=== PATIENT | female | born 1950 | race Caucasian/White ===

== ENCOUNTER 2016-02-20 15:57 | Inpatient (IN) | payer BC ==
[~2016-02-20] VITALS: Ht 175.3 cm; Wt 74.5 kg
[2016-02-21] MEDS ORDERED: LETR2.5T PO (09:51)
[2016-02-21] MEDS ORDERED: ZOLP10TA3 PO (09:51)
[2016-02-21] MEDS ORDERED: DENO60P SQ (09:51)
[2016-02-21] MEDS ORDERED: OMEP20TA PO (09:51)
[2016-02-21] MEDS ORDERED: DULO1CAP3 PO (09:51)
[2016-02-21] MEDS ORDERED: CALC1TAB12 PO (09:51)
[2016-02-21] MEDS ORDERED: HYDR200T3 PO (09:51)
[2016-02-21] MEDS ORDERED: ASPI1TAB69 PO (09:51)
[2016-02-21] MEDS ORDERED: METO25TA3 PO (10:50)
[2016-02-21] MEDS ORDERED: PRAV10TA PO (10:50)
[2016-02-25] VITALS (11 sets, daily range): BP systolic 91–110; BP diastolic 53–63; PULSE 53–80; RESP 16–20; TEMP 97.6–98; O2SAT 94–100
[2016-02-25] MEDS ORDERED: SODIUM CHLORID 0.9% 500 ML IV SCH (07:00)
[2016-02-25] MEDS ORDERED: INSULIN HUMAN REGULAR 1,000 UNITS/10 ML VIAL SQ PRN (07:00)
[2016-02-25] MEDS ORDERED: METOPROLOL TARTRATE 25 MG TAB PO PRN (07:00)
[2016-02-25] MEDS: LACTATED RINGER'S 1000 ML IV SCH (07:15)
[2016-02-25] MEDS ORDERED: LIDOCAINE 1%/EPINEPHrine 1:100,000 SOLN 20 ML VIAL ONE (08:19)
--- NOTE | 2016-02-25 08:28 | EKG ---
Date Performed: 02/25/2016 Time Performed: 07:57:08 PTAGE: 65 years EKG: SINUS BRADYCARDIA POSSIBLE RIGHT VENTRICULAR CONDUCTION DELAY BORDERLINE ECG PREVIOUS TRACING : 05/20/2004 09.19 No significant change from previous tracing noted. DOCTOR: Evgeny Mckinnon Interpretating Date/Time 02/25/2016 08:27:41
[2016-02-25] MEDS ORDERED: SODIUM BICARBONATE 8.4% INJ 50 ML ONE (08:44)
[2016-02-25] MEDS ORDERED: MIDAZOLAM HCL 5 MG/5 ML VIAL ONE (08:50)
[2016-02-25] MEDS ORDERED: fentaNYL CITRATE 250 MCG/5 ML AMP ONE ×2 (08:51→12:34)
--- NOTE | 2016-02-25 10:25 | PD.RAD ---
Post CT Procedure Prog Note Pre Procedure Diagnosis: (1) Breast CA Post Procedure Diagnosis: (1) Breast CA Procedure Date: Feb 25, 2016 Supervising Radiologist: Juan Quintanilla Proceduralist/Assist: RT Mauricio(R)(CT) Anesthesia: Local, Conscious Sedation Plan of Activity Patient to Unit: ROPU Patient Condition: Good See PACS Report for procedural detail/treatment Biopsy Side: Left Biopsy Procedure: Bone Site: T 11 rib marking Additional Detail: breast marking needles placed with tips along the top edge of the left 11h rib at the medial and lateral margin of the imaging abnormality in question Juan Quintanilla MD Feb 25, 2016 10:25
--- NOTE | 2016-02-25 10:41 | RADRPT ---
EXAM DATE/TIME: 02/25/2016 08:28 [facility] COMPARISON: No previous studies available for comparison. INDICATIONS : Needle placement left 11th rib. SEDATION TIME: 30 minutes MEDICATION(S): 1.) 4 mg midazolam (Versed) IV 2.) 200 mcg fentanyl (Sublimaze) IV DEVICE(S): 1.) 20 gauge Lee blunt needle MEDICAL HISTORY : Carcinoma, breast. SURGICAL HISTORY : None. ENCOUNTER: Initial ACUITY: 1 day PAIN SCORE: 0/10 LOCATION: Left chest PROCEDURE: 1.) Conscious sedation with continuous EKG and oximetry monitoring. 2.) EKG and oximetry remained stable throughout the procedure. PROCEDURE : CT guided left 11th rib marking. The risks, benefits and alternatives to the procedure were explained and verbal and written consent w as obtained. The site was prepped in sterile fashion. Full sterile technique was used, including ca p, mask, sterile gloves and gown and a large sterile sheet. Hand hygiene and 2% chlorhexidine and/or betadine/alcohol prep was utilized per protocol for cutaneous antisepsis. The skin and subcutaneous tissues were infiltrated with local anesthetic solution. Under direct CT guidance, 5 cm Lee breast localization needles were introduced and placed along t he superior edge of the medial and the lateral most margin of the abnormal section of the left 11th r ib. The needles were secured and bulky dressing was applied to help minimize risk of dislodgment prio r to surgery scheduled for later this morning. The patient tolerated the procedure well. Continuous p ulse oximetry and hemodynamic monitoring was performed throughout the procedure and intravenous consc ious sedation was administered as outlined above. CONCLUSION: Uncomplicated marking of the left 11th rib for open surgical biopsy as described in detail above. Juan Quintanilla MD on February 25, 2016 at 10:33 Board Certified Radiologist. This report was verified electronically.
[2016-02-25] MEDS ORDERED: BUPIVACAINE LIPOSO PF 1.3% INJ 20 ML, DEXAMETHASONE INJ 4 MG in SODIUM CHLORIDE 0.9% IN... PERIART SCH (12:00)
[2016-02-25] MEDS ORDERED: PHENYLEPH/NS 1000 MCG/10 ML SYR IV ONE (12:29)
[2016-02-25] MEDS ORDERED: PROPOFOL 200 MG/20 ML AMP IV ONE (12:29)
[2016-02-25] MEDS ORDERED: DO NOT ADM ANY ANTICOAGULANT DRUGS XX PRN (13:22)
[2016-02-25] MEDS ORDERED: SODIUM CHLORIDE 0.9% FLUSH 5 ML FLUSH IV FLUSH PRN (13:30)
[2016-02-25] MEDS ORDERED: *HYDROmorphone PF 1 MG VIAL PERIprocedural Use ONLY ONE ×2 (13:39→14:02)
--- NOTE | 2016-02-25 14:26 | RADRPT ---
EXAM DATE/TIME: 02/25/2016 13:05 [facility] COMPARISON: CT GUIDED NEEDLE PLACEMENT, February 25, 2016, 8:28. INDICATIONS : Left rib removal. MEDICAL HISTORY : Carcinoma, breast. SURGICAL HISTORY : Left rib removal. ENCOUNTER: Subsequent ACUITY: 1 day PAIN SCORE: Non-responsive. LOCATION: Left chest FINDINGS: Limited AP view of the chest demonstrates a left-sided chest tube projecting over the mediastinum. No visible pneumothorax within the imaged left lung. CONCLUSION: Left-sided line projecting over the mediastinum. No visualized pneumothorax or pleura l effusion. Parisa Hamilton MD on February 25, 2016 at 14:04 Board Certified Radiologist. This report was verified electronically.
[2016-02-25] MEDS: oxyCODONE/ACETAMINOPHEN 5 MG/325 MG TAB PO PRN ×2 (16:05→20:53)
[2016-02-25] MEDS: ONDANSETRON HCL 4 MG/2 ML VIAL IV PUSH PRN (18:33)
[2016-02-26] VITALS (26 sets, daily range): BP systolic 88–109; BP diastolic 47–60; PULSE 59–80; RESP 15–18; TEMP 97.9–98.5; O2SAT 96–99
[2016-02-26] MEDS: oxyCODONE/ACETAMINOPHEN 5 MG/325 MG TAB PO PRN ×2 (03:32→07:51)
[2016-02-26] MEDS: LACTATED RINGER'S 1000 ML IV SCH (06:34)
[2016-02-26] MEDS: SODIUM CHLORIDE 0.9% FLUSH 5 ML FLUSH IV FLUSH SCH ×2 (07:51→20:15)
[2016-02-26] MEDS ORDERED: ATROPINE SULFATE 1 MG/10 ML SYRINGE ONE (08:08)
[2016-02-26] MEDS ORDERED: EPINEPHrine HCL (1:10,000) 1 MG/10 ML SYRINGE ONE (08:08)
[2016-02-26] MEDS: ONDANSETRON HCL 4 MG/2 ML VIAL IV PUSH PRN (09:16)
--- NOTE | 2016-02-26 09:43 | MP ---
cc: KRISTEN TARANGO M.D., SOHIT K. MD TOWNSEND, JOHN [facility] DATE OF SURGERY 02/25/2016 PREOPERATIVE DIAGNOSES 1. Left eleventh rib lesion. 2. History of breast cancer. POSTOPERATIVE DIAGNOSES 1. Left eleventh rib lesion. 2. History of breast cancer. SURGICAL PROCEDURE 1. Left posterior eleventh rib segmental resection. 2. Intercostal nerve block. SURGEON Dr. Page APPLICATIONS TRAINER [facility] [place] ANESTHESIA General with [employer] Dr. Michele COUNTS Sponge, needle and instrument counts were correct. DRAINS One 19-Frisian Mitch drain. COMPLICATIONS None. INDICATIONS FOR PROCEDURE Ms. Del Cid is a 65-year-old female with a known history of breast cancer now presenting with a PET-positive lesion in the left posterior eleventh rib. The patient is then brought to the operating room for surgical resection. PROCEDURE The patient was brought to the operating room following CT-guided marking of the eleventh rib transcutaneously. The patient was placed in the right lateral decubitus position. The surrounding areas were prepped and draped in a sterile fashion, care being taken to not dislodge the marked needles. The previously placed needles were identified and incision was made in the skin between the two needles. The needles were marking the medial and lateral aspects of the corresponding PET-active eleventh rib. The incision was carried down to the muscle fascia, down to the level of the rib. Of note the needles had dislodged from the rib surface itself; however, the corresponding eleventh rib was identified by manual counting. The pleural space was entered and internal counting was also performed. The periosteum over the rib was dissected free and a segment of approximately of 2.5 cm of the rib was excised correlating with the PET activity on the scan. This was sent for histologic analysis. Copious irrigation was performed. Strict hemostasis was assured and the closure was undertaken. Intercostal nerve block was performed at the level of the incision as well as two rib spaces above and below using Exparel solution. The muscular fascial layer was also anesthetized with the Exparel solution. The muscular fascia was then closed in two layers following placement of a 19-Frisian Mitch drain into the pleural space and the subcutaneous tissue and skin approximated with a running suture. The patient tolerated the procedure well. Dermabond was placed and the patient was transferred to the recovery room in stable condition. Spike SMITH /4:37 PM /9:29 AM
[2016-02-26] MEDS ORDERED: LETROZOLE 2.5 MG PO SCH (10:00)
--- NOTE | 2016-02-26 10:26 | RADRPT ---
EXAM DATE/TIME: 02/26/2016 10:04 [facility] COMPARISON: CT THORAX W/O CONTRAST, February 26, 2016, 9:50. INDICATIONS : Post 11th rib left side resection. short of breath. MEDICAL HISTORY : None. SURGICAL HISTORY : None. ENCOUNTER: Initial ACUITY: 2 days PAIN SCORE: 0/10 LOCATION: Bilateral chest FINDINGS: AP lateral views of the chest demonstrate a chest tube overlying the posterior left thorax. The lungs appear adequately inflated without evidence of pneumothorax. There are linear areas of parenchymal i ncreased density within the lung bases consistent with platelike atelectasis. Small pleural effusion. Heart size is normal. Osseous structures are grossly unremarkable. CONCLUSION: Left posterior chest tube. Small pleural effusions. No visible pneumothorax.. Parisa Hamilton MD on February 26, 2016 at 10:22 Board Certified Radiologist. This report was verified electronically.
[2016-02-26] MEDS: ASPIRIN EC 81 MG TABEC PO SCH (11:00)
[2016-02-26] MEDS: PANTOPRAZOLE SOD 20 MG DELAYED RELEASE TAB PO SCH (11:00)
--- NOTE | 2016-02-26 11:06 | PD.CAR.PN ---
CVT Progress Note Subjective/Hospital Course: 65/ f hx of left breast CA / chemo/ s/p left mastectomy, prophylactic removal of right breast / + recent Pet scan abnormality along Left 11th rib/ concern for metastatic disease pmh: Boss's esophagitis , surgery: Left posterior 11th rib segmental resection 02/24 02/[address] chest report then discuss with Dr Page concerning removal of chest tube pt has had some bouts of nausea / will change pain med to norco from percocet will ambulate in hallway Objective: GENERAL: SKIN: Warm and dry. HEAD: Normocephalic. EYES: No scleral icterus. No injection or drainage. NECK: Supple, trachea midline. No JVD or lymphadenopathy. CARDIOVASCULAR: Regular rate and rhythm without murmurs, gallops, or rubs. RESPIRATORY: Breath sounds equal bilaterally. No accessory muscle use. chano tube left lateral chest wall GASTROINTESTINAL: Abdomen soft, non-tender, nondistended. MUSCULOSKELETAL: No cyanosis, or edema. BACK: Nontender without obvious deformity. No CVA tenderness. Vital Signs Date Time Temp Pulse Resp B/P Pulse Ox O2 Delivery O2 Flow Rate FiO2 02/26/16 07:45 98.1 70 15 88/49 99 02/26/16 07:00 60 02/26/16 06:00 63 02/26/16 05:00 68 02/26/16 04:00 63 02/26/16 03:15 98.2 69 18 109/60 98 02/26/16 03:00 73 02/26/16 02:00 62 02/26/16 01:00 67 02/26/16 00:00 59 02/25/16 23:15 97.9 72 18 99/57 97 02/25/16 23:00 72 02/25/16 22:00 67 02/25/16 21:00 66 02/25/16 20:46 97/53 02/25/16 20:00 97.8 68 18 91/59 95 02/25/16 20:00 72 02/25/16 19:00 69 02/25/16 18:03 63 02/25/16 17:36 63 02/25/16 17:36 98.0 80 18 102/63 94 02/25/16 17:00 97.5 80 14 110/40 97 Room Air 02/25/16 16:00 74 14 102/67 98 Room Air 02/25/16 15:00 73 14 95/53 97 Room Air 02/25/16 14:15 70 14 108/53 98 Room Air 02/25/16 14:00 68 14 110/60 99 Nasal Cannula 2 02/25/16 13:45 75 14 106/63 99 Nasal Cannula 2 02/25/16 13:30 68 12 106/63 98 Nasal Cannula 2 02/25/16 13:28 Nasal Cannula 2 02/25/16 13:24 98.2 57 12 95/58 96 Room Air Telemetry: NSR (1) Lupus (2) Breast CA (3) s/p left posterior 11th segemental rib resection Plan: eval for removal of chest tube / after ct report Parisa Sparks Feb 26, 2016 11:06
--- NOTE | 2016-02-26 11:36 | RADRPT ---
EXAM DATE/TIME: 02/26/2016 09:50 [facility] COMPARISON: CT GUIDED NEEDLE PLACEMENT, February 25, 2016, 8:28. INDICATIONS : Confirm left posterior 11th rib resection. RADIATION DOSE: 5.14 CTDIvol (mGy) MEDICAL HISTORY : Cardiovascular disease. Gastroesophageal reflux disease. Carcinoma, breast. SURGICAL HISTORY : 11th posterior left rib resection. ENCOUNTER: Initial ACUITY: 1 day PAIN SCALE: 4/10 LOCATION: Left chest TECHNIQUE: Volumetric scanning of the chest was performed. Using automated exposure control and adjustment of t he mA and/or kV according to patient size, radiation dose was kept as low as reasonably achievable to obtain optimal diagnostic quality images. FINDINGS: The scan reveals interval open surgical resection of a portion of the posterior left 11th rib. There is a roughly 2 cm section of rib missing from the 11th rib. The sampling site does include a portion of the suspected abnormal rib from the patient's other imaging exams. A posterior left thoracostomy t ube is present. There is no evidence of pneumothorax. There is mild basilar atelectasis bilaterally. Elsewhere on the exam, mediastinum is benign in appearance. There is no evidence of axillary adenopat hy. A liver cyst is noted. Visualized upper abdomen is otherwise unremarkable. CONCLUSION: Patient status post open surgical sampling of the posterior left 11th rib with expected postoperative findings as described. Juan Quintanilla MD on February 26, 2016 at 11:17 Board Certified Radiologist. This report was verified electronically.
[2016-02-26] MEDS: DULoxetine HCl DR 60 MG CAP PO SCH (11:42)
[2016-02-26] MEDS: METOPROLOL TARTRATE 25 MG TAB PO SCH ×2 (12:00→20:16)
[2016-02-26] MEDS ORDERED: PILL SPLITTER OTHER PRN (12:15)
[2016-02-26] MEDS: ACETAMINOPHEN/HYDROcodone 325 MG/5 MG TAB PO PRN (20:16)
[2016-02-26] MEDS ORDERED: PRAVASTATIN SOD 10 MG TAB PO SCH (21:00)
[2016-02-27] VITALS (16 sets, daily range): BP systolic 94–106; BP diastolic 51–55; PULSE 53–89; RESP 16; TEMP 97.8–98.8; O2SAT 97–100
[2016-02-27] MEDS: ACETAMINOPHEN/HYDROcodone 325 MG/5 MG TAB PO PRN ×2 (06:10→11:42)
[2016-02-27] MEDS: LACTATED RINGER'S 1000 ML IV SCH (06:15)
[2016-02-27] MEDS: SODIUM CHLORIDE 0.9% FLUSH 5 ML FLUSH IV FLUSH SCH (08:40)
[2016-02-27] MEDS: ASPIRIN EC 81 MG TABEC PO SCH (08:41)
[2016-02-27] MEDS: METOPROLOL TARTRATE 25 MG TAB PO SCH (08:41)
[2016-02-27] MEDS: PANTOPRAZOLE SOD 20 MG DELAYED RELEASE TAB PO SCH (08:41)
[2016-02-27] MEDS: DULoxetine HCl DR 60 MG CAP PO SCH (08:42)
--- NOTE | 2016-02-27 11:40 | HHI.DS ---
Discharge Summary Admission Date Feb 25, 2016 at 05:37 Discharge Date: Feb 27, 2016 Admitting Diagnosis left 11th rib lesion (1) s/p left posterior 11th segemental rib resection Diagnosis: Secondary (2) Breast CA Diagnosis: Principal Procedures left posterior 11th rib segmental resection / rib lesion Brief History 65/ f hx of left breast CA / chemo/ s/p left mastectomy, prophylactic removal of right breast / + recent Pet scan abnormality along Left 11th rib/ concern for metastatic disease pmh: Boss's esophagitis , surgery: Left posterior 11th rib segmental resection 02/24 Imaging Last Impressions Chest CT 02/26/16 0800 Signed Impressions: Service Date/Time: Friday, February 26, 2016 09:50 - CONCLUSION: Patient status post open surgical sampling of the posterior left 11th rib with expected postoperative findings as described. Juan Quintanilla MD Chest X-Ray 02/26/16 0600 Signed Impressions: Service Date/Time: Friday, February 26, 2016 10:04 - CONCLUSION: Left posterior chest tube. Small pleural effusions. No visible pneumothorax.. Parisa Hamilton MD Guidance Needle Placement CT 02/25/16 0000 Signed Impressions: Service Date/Time: Thursday, February 25, 2016 08:28 - CONCLUSION: Uncomplicated marking of the left 11th rib for open surgical biopsy as described in detail above. Juan Quintanilla MD PE at Discharge GENERAL: SKIN: Warm and dry. HEAD: Normocephalic. EYES: No scleral icterus. No injection or drainage. NECK: Supple, trachea midline. No JVD or lymphadenopathy. CARDIOVASCULAR: Regular rate and rhythm without murmurs, gallops, or rubs. RESPIRATORY: diminished left lower lung, dressing in place to chest tube sight , incision left posterior chest intact and well approximated Breath sounds equal bilaterally. No accessory muscle use. GASTROINTESTINAL: Abdomen soft, non-tender, nondistended. MUSCULOSKELETAL: No cyanosis, or edema. BACK: Nontender without obvious deformity. No CVA tenderness. Pt Condition on Discharge: Good Discharge Disposition: Discharge Home Discharge Instructions DIET: Follow Instructions for: As Tolerated, No Restrictions Activities you can perform: Full Weight Bearing, Shower Only-No Bath Activities to avoid: Prolonged Standing, Strenuous Activity, Driving Additional Activity Instructio: no lifting >8lbs or gallon of milk Follow up Referrals: Oncology - 3 Weeks with Ximena Ellis MD PCP Follow-up - 2 Weeks with Alessandro Grady MD PCP Follow-up - 2 Weeks with Spike Page MD Continued Medications: Aspirin (Aspirin) 81 Mg Tabdr 81 MG PO WEEKLY TAB Calcium Carbonate-Cholecalciferol (Calcium 500 +D) 500-400 Mg-Unit Tab 1 TAB PO BID Calcium Supplement Ref 0 TAB Denosumab Inj (Prolia Inj) 60 Mg/Ml Inj 60 MG SQ Q180D Ref [address] (Duloxetine DR) 60 Mg Capdr 60 MG PO DAILY #30 Ref 0 CAP Hydroxychloroquine (Hydroxychloroquine) 200 Mg Tab 200 MG PO EVERY OTHER DAY Takw with food #30 Ref 0 TAB Letrozole (Letrozole) 2.5 Mg Tab 2.5 MG PO DAILY Metoprolol Tartrate (Metoprolol Tartrate) 25 Mg Tab 12.5 MG PO BID #60 Ref 0 TAB Omeprazole (Omeprazole) 20 Mg Tab 20 MG PO DAILY #30 Ref 0 TAB Pravastatin (Pravastatin) 10 Mg Tab 10 MG PO HS Cholesterol Management #30 Ref 0 TAB Zolpidem (Zolpidem) 10 Mg Tab 5 MG PO HS PRN INSOMNIA Ref 0 TAB Parisa Sparks Feb 27, 2016 11:39
[2016-02-27] MEDS ORDERED: PHENYLEPHRINE HCL 10 MG/ML VIAL IV ONE (13:08)
[2016-02-27] MEDS ORDERED: ceFAZolin 2 GM PREMIX 50 ML IV ONE (13:08)
[2016-02-28] MEDS ORDERED: HYDROXYCHLOROQUINE SULFATE 200 MG TAB PO SCH (09:00)
== END 2016-02-27 13:09 | disposition home or self-care (01) | DRG 517 ==
LOC: HSDI 02-25 05:37 → HCIN 02-25 17:20
PROVIDERS: ADMIT Thoracic Surgery (Cardiothoracic Vascular Surgery); ATTEND Thoracic Surgery (Cardiothoracic Vascular Surgery)
PROC: 3E0T3CZ (ICD-10-PCS; 2016-02-25)
PROC: 0PB20ZZ Excision of 3 or More Ribs, Open Approach (ICD-10-PCS; principal; 2016-02-25 11:39)
DX: M89.9 Disorder of bone, unspecified (principal); M32.9 Systemic lupus erythematosus, unspecified; K22.70 Barrett's esophagus without dysplasia; K21.9 Gastro-esophageal reflux disease without esophagitis; Z85.3 Personal history of malignant neoplasm of breast; Z90.13 Acquired absence of bilateral breasts and nipples; Z88.5 Allergy status to narcotic agent
CPT/HCPCS: 71010; 71020; 71250; 77012; 88305; 88307; 88311; 93005; C9290; J0171; J0461; J0690; J1100; J1170; J2250; J2370; J2405; J3010; J7120